=== PATIENT | male | born 1990 | race Two or more races ===

== ENCOUNTER 2017-07-10 15:04 | Emergency (ER) | payer OTHER ==
[~2017-07-10] VITALS: Ht 167.6 cm; Wt 81.0 kg
[~2017-07-10 15:04] MED LIST: OLAN20TA3 PO
[2017-07-10 15:25] LABS: BASOPHILS % (AUTO) 0 % (0-1); EOSINOPHILS # (AUTO) 0.1 X10'3 (0-0.9); EOSINOPHILS % (AUTO) 1.5 % (0-6); HEMATOCRIT 45.8 % (42.0-52.0); HEMOGLOBIN 15.7 g/dl (14.0-17.9); LYMPHOCYTES # (AUTO) 1.6 X10'3 (1.1-4.8); MEAN CORPUSCULAR HEMOGLOBIN 28.2 PG (27.0-31.0); MEAN CORPUSCULAR HGB CONC 34.3 % (33.0-36.5); MEAN CORPUSCULAR VOLUME 82.4 FL (78-98); MEAN PLATELET VOLUME 7.9 FL (7.4-10.4); MONOCYTES # (AUTO) 0.7 X10'3 (0-0.9); MONOCYTES % (AUTO) 7.2 % (2-12); NEUTROPHILS # (AUTO) 6.9 X10'3 (1.8-7.7); NEUTROPHILS % (AUTO) 74.3 % (42-75); PLATELET COUNT 229 X10'3 (140-440); RED BLOOD COUNT 5.55 X10'6 (4.70-6.10); RED CELL DISTRIBUTION WIDTH 13.4 % (11.5-14.5); WHITE BLOOD COUNT 9.2 X10'3 (4.5-11.0)
[2017-07-10 16:06] LABS: ALANINE AMINOTRANSFERASE 44 U/L (12-78); ALBUMIN 4.1 G/DL (3.4-5.0); ALBUMIN/GLOBULIN RATIO 1.1 (1.1-1.5); ALKALINE PHOSPHATASE 78 IU/L (46-116); ANION GAP 8 (8-16); ASPARTATE AMINO TRANSFERASE 24 U/L (10-37); BILIRUBIN,TOTAL 0.5 MG/DL (0.1-1.0); BLOOD UREA NITROGEN 9 MG/DL (7-18); BUN/CREATININE RATIO 9.8 (5.4-32.0); CALCIUM 9.2 MG/DL (8.5-10.1); CHLORIDE 102 MMOL/L (99-107); CREATININE 0.92 MG/DL (0.60-1.10); GLUCOSE 99 MG/DL (70-104); POTASSIUM 3.9 MMOL/L (3.5-5.1); SODIUM 138 MMOL/L (135-145); TOTAL CARBON DIOXIDE 27.8 MMOL/L (24-32); TOTAL PROTEIN 7.7 G/DL (6.4-8.2); eGFR > 90 ML/MIN
[2017-07-10 16:10] LABS: ETHANOL < 0.010 GM/DL (0.0-0.010)
[2017-07-10 16:46] LABS: CLARITY,URINE CLEAR (Clear); COLOR,URINE STRAW (Yellow); GLUCOSE, URINE NEGATIVE (Neg); KETONES,URINE NEGATIVE (Neg); LEUKOCYTE ESTERASE ,URINE NEGATIVE (Neg); NITRITES, URINE NEGATIVE (Neg); OCCULT BLOOD,URINE NEGATIVE (Neg); PH,URINE 6.5 (4.8-8.0); PROTEIN,URINE NEGATIVE (Neg); UROBILINOGEN,URINE 0.2 E.U/dL (0.2-1.0)
[2017-07-10 16:48] LABS: UA COLLECTION TYPE CLN CATCH MIDSTREAM
[2017-07-10 16:52] LABS: URINE AMPHETAMINE SCREEN NEGATIVE (Neg); URINE BARBITUATE SCREEN NEGATIVE (Neg); URINE BENZODIAZEPINES SCREEN NEGATIVE (Neg); URINE CANNABINOID SCREEN NEGATIVE (Neg); URINE COCAINE SCREEN NEGATIVE (Neg); URINE METHADONE SCREEN NEGATIVE (Neg); URINE OPIATE SCREEN NEGATIVE (Neg); URINE PHENCYCLIDINE SCREEN NEGATIVE (Neg)
[2017-07-11] MEDS: CITALOpram 10mg tablet PO SCH (08:15)
[2017-07-11] MEDS ORDERED: LORazepam 1 MG tablet PO ONE (17:00)
[2017-07-11] MEDS ORDERED: OLANZapine 2.5MG tablet PO SCH (21:00)
[2017-07-12] MEDS: CITALOpram 10mg tablet PO SCH (08:50)
[2017-07-12] MEDS: olanzapine 10mg tablet PO SCH (21:12)
[2017-07-13] MEDS: CITALOpram 10mg tablet PO SCH (08:28)
[2017-07-13] MEDS: OLANZapine 5mg rapidly disint. tablet PO SCH (12:06)
[2017-07-13] MEDS: olanzapine 10mg tablet PO SCH (20:04)
[2017-07-14] MEDS: CITALOpram 10mg tablet PO SCH (08:55)
[2017-07-14] MEDS: OLANZapine 5mg rapidly disint. tablet PO SCH (08:55)
[2017-07-14] MEDS: olanzapine 10mg tablet PO SCH (21:15)
[2017-07-15] MEDS: CITALOpram 10mg tablet PO SCH (08:00)
[2017-07-15] MEDS: OLANZapine 5mg rapidly disint. tablet PO SCH (08:00)
[2017-07-15] MEDS ORDERED: LISI40TA4 PO (17:30)
[2017-07-15] MEDS: olanzapine 10mg tablet PO SCH (20:37)
[2017-07-16] MEDS: CITALOpram 10mg tablet PO SCH (08:18)
[2017-07-16] MEDS: OLANZapine 5mg rapidly disint. tablet PO SCH (08:18)
[2017-07-16] MEDS: olanzapine 10mg tablet PO SCH (20:05)
[2017-07-17] MEDS: OLANZapine 5mg rapidly disint. tablet PO SCH (08:24)
[2017-07-17] MEDS: CITALOpram 10mg tablet PO SCH (08:24)
[2017-07-17] MEDS: olanzapine 10mg tablet PO SCH (21:33)
[2017-07-18] MEDS: CITALOpram 10mg tablet PO SCH (09:19)
[2017-07-18] MEDS: OLANZapine 5mg rapidly disint. tablet PO SCH (09:19)
[2017-07-18] MEDS: olanzapine 10mg tablet PO SCH (21:04)
[2017-07-19] MEDS: OLANZapine 5mg rapidly disint. tablet PO SCH (08:51)
[2017-07-19] MEDS: CITALOpram 10mg tablet PO SCH (08:51)
[2017-07-19 14:42] VITALS: BP 116/68
== END 2017-07-19 14:46 ==
LOC: ER 15:04
DX: R45.851 Suicidal ideations (principal); R07.81 Pleurodynia; F20.9 Schizophrenia, unspecified; F12.10 Cannabis abuse, uncomplicated; F15.10 Other stimulant abuse, uncomplicated; F11.10 Opioid abuse, uncomplicated; F14.10 Cocaine abuse, uncomplicated; F17.200 Nicotine dependence, unspecified, uncomplicated; Z59.0 Homelessness; Z56.0 Unemployment, unspecified
CPT/HCPCS: 36415; 80053; 80305; 80320; 81003; 84443; 84484; 85025; 93005; 99285; J3490